=== PATIENT | female | born 1985 | race Caucasian/White ===

== ENCOUNTER 2022-11-06 08:15 | Emergency (ER) | payer OTHER ==
[2022-11-06 08:26] VITALS: PULSE 60; RESP 18; BMI 25.8
[2022-11-06 09:26] LABS: BASO % 0.4 % (0-2.0); EOS % 3.2 % (0-4.5); HEMATOCRIT 38.6 % (32.4-45.2); HEMOGLOBIN 13.3 GM/dL (10.7-15.3); LYMPH % 27.3 % (8-40); MCH 32.6 pg (25.7-33.7); MCHC 34.5 g/dl (32.0-36.0); MEAN CELL VOLUME 94.6 fl (80-96); MEAN PLT VOLUME 8.9 fl (7.5-11.1); MONO % 6.2 % (3.8-10.2); NEUT % 62.9 % (42.8-82.8); PLATELET COUNT 297 10^3/uL (134-434); RBC 4.08 M/mm3 (3.60-5.2); RDW 12.6 % (11.6-15.6); WHITE BLOOD COUNT 6.2 K/mm3 (4.0-10.0)
[2022-11-06 09:31] LABS: PROTHROMBIN TIME (PATIENT) 11.6 SEC (9.7-13.0)
[2022-11-06 09:34] LABS: ACTIVATED PTT 28.4 SECONDS (25.2-36.5)
[2022-11-06 09:49] LABS: POTASSIUM 4.7 mmol/L (3.5-5.1)
[2022-11-06 09:52] LABS: BLOOD UREA NITROGEN 17.4 mg/dL (7-18); CALCIUM 8.9 mg/dL (8.5-10.1)
[2022-11-06 09:53] LABS: ALBUMIN 3.4 g/dl (3.4-5.0); MAGNESIUM 2.2 mg/dL (1.8-2.4)
[2022-11-06 09:55] LABS: PHOSPHOROUS 3.5 mg/dL (2.5-4.9)
[2022-11-06 09:56] LABS: CREATININE 0.7 mg/dL (0.55-1.3)
[2022-11-06 09:57] LABS: BILIRUBIN,TOTAL 0.4 mg/dL (0.2-1); TOT PROT 6.8 g/dl (6.4-8.2)
[2022-11-06 11:53] LABS: EPI CELLS 14 /uL (0-25.1); HYALINE CASTS 1 /uL (0-3.1); URINE APPEARANCE CLEAR; URINE BACTERIA 847 /uL (0-1359); URINE BILIRUBIN NEGATIVE (NEGATIVE); URINE COLOR YELLOW; URINE GLUCOSE (UA) NEGATIVE (NEGATIVE); URINE KETONE NEGATIVE (NEGATIVE); URINE LEUK ESTERASE 1+ (NEGATIVE); URINE NITRITE NEGATIVE (NEGATIVE); URINE PROTEIN TRACE (NEGATIVE); URINE RBC 31 /uL (0-23.9); URINE UROBILINOGEN 0.2 mg/dL (0.2-1.0); URINE WBC 90 /uL (0-25.8)
[2022-11-06 12:49] VITALS: BP 109/70; TEMP 97.6
== END 2022-11-06 12:41 | disposition home or self-care (01) ==
LOC: JER 08:15
DX: R53.1 Weakness (principal); R53.83 Other fatigue; L65.9 Nonscarring hair loss, unspecified; Z20.822 Contact with and (suspected) exposure to COVID-19
CPT/HCPCS: 0241U-QW; 36415; 71045-TC-FY; 80053; 81003; 82010; 82550; 82607; 82746; 83735; 84100; 84439; 84443; 84484; 84703; 85025; 85610; 85730; 87086; 93005; 93010; 99285-25